=== PATIENT | female | born 1935 | race Caucasian/White ===

== ENCOUNTER 2016-11-12 05:38 | Inpatient (IN) | payer OTHER ==
[2016-10-28 13:05] LABS: HEMATOCRIT 41.4 % (37.0-47.0); HEMOGLOBIN 14.1 gm/dL (12.0-15.0); MCH 30.3 pg (26.0-34.0); RBC 4.65 mil/uL (4.20-5.00); RDW 13.9 % (10.5-14.5); WBC 10.6 thou/uL (4.0-11.0)
[2016-10-28 13:19] LABS: ALBUMIN 4.1 g/dL (3.4-5.0); CALCIUM 9.7 mg/dL (8.5-10.1); POTASSIUM 4.1 mmol/L (3.5-5.1)
[2016-10-28 13:20] LABS: PROTIME 10.7 Seconds (9.3-11.4)
[2016-10-28 13:24] LABS: URINE BILIRUBIN NEGATIVE (Negative); URINE BLOOD NEGATIVE (Negative); URINE COLOR YELLOW; URINE GLUCOSE-RANDOM* NEGATIVE (Negative); URINE KETONES NEGATIVE (Negative); URINE LEUKOCYTES-REFLEX NEGATIVE (Negative); URINE PROTEIN (DIPSTICK) NEGATIVE (Negative); URINE SPECIFIC GRAVITY <= 1.005 (1.003-1.035); URINE UROBILINOGEN 0.2 E.U./dl (0.2-1.0)
[~2016-11-12] VITALS: Ht 160 cm; Wt 78.5 kg
--- NOTE | ~2016-11-12 | EKG ---
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
--- NOTE | ~2016-11-12 | HC ---
[facility] [place] [address] [place] [address] CONSULTATION Name: GISELA PUENTE Room #: 545-P ADM IN M.R.#: [id number] Admission: 11/12/16 Attend Phys: Kirk Bynum MD Discharge: Date of : 37 Report #: [id number] THIS REPORT FOR: //name// CC: Jose Bynum DATE OF SERVICE: 11/12/2016 REASON FOR CONSULTATION: Medical management. HISTORY OF PRESENT ILLNESS: The patient is a 80-year-old white female who presents today for left hip replacement surgery by Dr. Kirk Bynum. Surgery and postop were unremarkable. She is followed in my office for hypertension, hypercholesterolemia, osteopenia, degenerative joint disease and occasional GERD. She is doing well immediate postoperatively. Pain is well controlled. She has no specific new concerns. PAST MEDICAL HISTORY: She is 5, para 5 with 5 vaginal deliveries. Menopause at age 58. She has a history of hormone replacement therapy. She has hypertension, osteopenia, degenerative joint disease, hypercholesterolemia and GERD. PAST SURGICAL HISTORY: She has had tonsillectomy. She has had lumbar back surgery. She has had benign breast biopsies, a left elbow cubital tunnel release and now a left hip replacement. SOCIAL HISTORY: She is retired. She is . She does not smoke. She drinks alcohol socially. She uses no illegal drugs. She gets frequent exercise with walking and golfing. FAMILY HISTORY: Mother of breast cancer. Father of coronary artery disease. Brother of laryngeal cancer. MEDICATIONS ON ADMISSION: Include spironolactone 50 mg daily, Caltrate daily, vitamin E daily, multivitamin daily, Fosamax 35 mg weekly, Cardizem CD 240 mg daily and simvastatin 40 mg daily. MEDICATION ALLERGIES: PENICILLIN. REVIEW OF SYSTEMS: Negative except as per HPI. PHYSICAL EXAMINATION: GENERAL: She is a well-nourished white female resting comfortably in her hospital bed. Pain is adequately controlled. VITAL SIGNS: She is afebrile, blood pressure 149/84, pulse 64, O2 saturation 95% on room air and respirations 12. [facility] [address] [place] [address] CONSULTATION Name: GISELA PUENTE Room #: 545-P [facility] IN .R.#: [id number] Admission: 11/12/16 Attend Phys: Kirk Bynum MD Discharge: Date of : 37 Report #: [id number] HEENT: Grossly unremarkable. NECK: Supple. CHEST: Clear to auscultation. CARDIOVASCULAR: Heart is regular without murmur or gallop. ABDOMEN: Benign. SKIN: Shows normal turgor. PREOPERATIVE LABORATORY DATA: Showed normal basic metabolic profile, normal coagulation times, unremarkable CBC and normal urinalysis. ASSESSMENT: 1. Status post left total hip ____. 2. Hypertension. 3. Hypercholesterolemia. 4. Osteopenia. PLAN: Routine postop care per orthopedics including Xarelto. We will continue her on her home medications, and we will follow her progress with you closely. <ELECTRONICALLY SIGNED> By: Jose Michaels MD 11/13/16 0656 1823 1920 Jose Michaels MD /nt
--- NOTE | ~2016-11-12 | H ---
[facility] [place] [address] HISTORY AND PHYSICAL Name: CINDIGISELA Janet Room #: 545-P DIS IN M.R.#: [id number] Admission: 11/12/16 Attend Phys: Kirk Bynum MD Discharge: 11/15/16 Date of : 37 Report #: [id number] THIS REPORT FOR: //name// For History and Physical, please see office documentation/handwritten note in the patient's medical record. <ELECTRONICALLY SIGNED> By: Kirk Bynum MD 11/19/16 1131 0000 1123 Kirk Bynum MD /
--- NOTE | ~2016-11-12 | O ---
[facility] [place] [address] [address] [place] [address] OPERATIVE REPORT Name: GISELA PUENTE Room #: 545-P ADM IN M.R.#: [id number] Admission: 11/12/16 Attend Phys: Kirk Bynum MD Discharge: Date of : 37 Report #: [id number] THIS REPORT FOR: //name// CC: Jose Bynum DATE OF SERVICE: 11/12/2016 PREOPERATIVE DIAGNOSIS: Left hip degenerative joint disease, severe. POSTOPERATIVE DIAGNOSIS: Left hip degenerative joint disease, severe. PROCEDURE: Left total hip arthroplasty. SURGEON: Kirk Bynum MD VOCATIONAL COORDINATOR: Enzo Hinkle, nurse practitioner. INDICATIONS FOR VOCATIONAL COORDINATOR: During the course of operation, extensive manipulation, retraction and limb positioning was required. This was afforded to me by my executive staff assistant. ANESTHETIC: General. INDICATIONS: See [facility] H and P. IMPLANTS UTILIZED: Used a Salvador hip system, used a secure Secur-Fit Max hip stem, 132-degree neck angle, we used a +0, 32 outer diameter femoral head with a Tritanium hemispherical solid back shell size 50 outer diameter and a Trident X3 10 degree polyethylene insert. DESCRIPTION OF PROCEDURE: After adequate general anesthesia had been obtained, the patient was placed in a lateral decubitus position with a hip positioner. The left hip and lower extremity were prepped and draped in the usual meticulous sterile fashion. Posterolateral incision was made to the hip. SubQ divided sharply. Hemostasis obtained with electrocautery. The IT band and gluteal fascia was divided and this layer was retracted with a Charnley retractor. Hip was internally rotated and external rotators were detached at their insertion, tagged and retracted posteriorly. Capsular incision was made and likewise was tagged and retracted posteriorly. Hip was dislocated. Soft tissue removed from the base of the femoral neck. Starter awl placed at the base of the neck and advanced to the canal. Canal was sequentially reamed to a size 9. Neck osteotomy was performed. Attention directed to the acetabulum and circumferentially exposed. Labrum was [address] [address] OPERATIVE REPORT Name: GISELA PUENTE Room #: 545-P ADM IN M.R.#: [id number] Admission: 11/12/16 Attend Phys: Kirk Bynum MD Discharge: Date of : 37 Report #: [id number] excised. Acetabulum was sequentially reamed to a size 48 with a good press fit with a 48 trial, so we reamed to a 49, irrigated copiously and impacted the shell into position. Cap screw was placed and liner placed after copious irrigation. Attention was redirected to the femur. Femur was sequentially broached to a size 9 and excellent torsional stability was obtained. We trialed reduced the hip and leg lengths were reapproximated with a +0 neck length and excellent stability parameters noted. At this time, the trial components were removed. The hip was irrigated copiously. Permanent implant impacted in place and the head impacted in place. We then repaired the capsule and external rotators to the trochanter. This was done by passing the sutures through the bone and tying them over a bone bridge. Drains were placed deep and superficial. The IT band and gluteal fascia was closed with combination of interrupted [id number] #1 Vicryl as well as running #1 Tevdek. SubQ closed with 2-0 Monocryl, skin closed with fer. Sterile compressive dressing was applied. <ELECTRONICALLY SIGNED> By: Kirk Bynum MD 11/15/16 0652 1217 1302 Kirk Bynum MD /nt
[~2016-11-12 05:38] MED LIST: CARDIZEM CD240 MG PO; DOXYCYCLINE 10100 MG PO; SIMVASTATIN40 MG PO; SPIRONOLACTONE50 MG PO
[2016-11-12 09:00] VITALS: BP 152/77
[2016-11-12 13:55] VITALS: BP 141/76
[2016-11-12 14:30] VITALS: BP 116/54
[2016-11-12 15:00] VITALS: BP 149/84
[2016-11-12 16:00] VITALS: BP 130/77
[2016-11-12 20:00] VITALS: BP 134/80
[2016-11-13] VITALS: BP 137/68
[2016-11-13 04:00] VITALS: BP 130/68
[2016-11-13 06:45] LABS: HEMATOCRIT 35.5 % (37.0-47.0); MCH 30.1 pg (26.0-34.0); MCHC 33.9 g/dL (28.0-37.0); MCV 88.8 fL (80.0-100.0); RDW 14.4 % (10.5-14.5); WBC 13.8 thou/uL (4.0-11.0)
[2016-11-13 08:11] VITALS: BP 135/82
[2016-11-13 15:37] VITALS: BP 138/78
[2016-11-13 20:00] VITALS: BP 143/65
[2016-11-14 04:17] VITALS: BP 127/66
[2016-11-14 06:34] LABS: HEMATOCRIT 33.8 % (37.0-47.0); HEMOGLOBIN 11.4 gm/dL (12.0-15.0); MCH 30.4 pg (26.0-34.0); MCHC 33.8 g/dL (28.0-37.0); RBC 3.76 mil/uL (4.20-5.00); WBC 11.1 thou/uL (4.0-11.0)
[2016-11-14] MEDS ORDERED: XARELTO10 MG PO (07:12)
[2016-11-14] MEDS ORDERED: HYDROCODONE-APA1 TA1 PO (07:12)
[2016-11-14 20:00] VITALS: BP 132/75
[2016-11-15 03:34] LABS: HEMATOCRIT 31.6 % (37.0-47.0); HEMOGLOBIN 10.9 gm/dL (12.0-15.0); MCH 30.8 pg (26.0-34.0); MCHC 34.5 g/dL (28.0-37.0); MCV 89.4 fL (80.0-100.0); RBC 3.54 mil/uL (4.20-5.00); RDW 13.9 % (10.5-14.5); WBC 9.5 thou/uL (4.0-11.0)
[2016-11-15 04:00] VITALS: BP 152/70
[2016-11-15] MEDS ORDERED: ZOFRAN ODT4 MG DISSOLVE (06:45)
[2016-11-15] MEDS ORDERED: COLACE 100 MG100 MG PO (07:47)
[2016-11-15] MEDS ORDERED: SENNA8.6 MG PO (07:48)
[2016-11-15] MEDS ORDERED: IRON325 PO (07:50)
[2016-11-15 08:54] VITALS: BP 152/70
[2016-11-15 09:42] VITALS: BP 167/61
== END 2016-11-15 14:05 | disposition home health service (06) | DRG 470 ==
LOC: TBA 05:38 → 5S 05:38 → PRE 08:13 → 5S 13:23 → PRE 14:21 → 5S 11-15 14:05
PROVIDERS: Orthopaedic Surgery
PROC: 0SRB04A Replacement of Left Hip Joint with Ceramic on Polyethylene Synthetic Substitute, Uncemented, Open Approach (ICD-10-PCS; principal; 2016-11-12)
DX: M16.12 Unilateral primary osteoarthritis, left hip (principal); D62 Acute posthemorrhagic anemia; I10 Essential (primary) hypertension; E78.00 Pure hypercholesterolemia, unspecified; K21.9 Gastro-esophageal reflux disease without esophagitis; R11.0 Nausea; Z90.49 Acquired absence of other specified parts of digestive tract; Z82.49 Family history of ischemic heart disease and other diseases of the circulatory system; Z80.3 Family history of malignant neoplasm of breast; Z80.8 Family history of malignant neoplasm of other organs or systems; Z88.0 Allergy status to penicillin; M85.80 Other specified disorders of bone density and structure, unspecified site
CPT/HCPCS: 10785; 50010; 50101; 50382; 50414; 50455; 50855; 50939; 51412; 51771; 53000; 55388; 56521; 56525; 56527; 56530; 57095; 62110; 62900; 70005

== ENCOUNTER → 2020-01-18 | Outpatient (CLI) | payer OTHER ==
[~2020-01-18] MED LIST changes: +COLACE 100 MG100 MG PO; +HYDROCODONE-APA1 TA1 PO; +IRON325 PO; +SENNA8.6 MG PO; +XARELTO10 MG PO; +ZOFRAN ODT4 MG DISSOLVE
== END ==
LOC: SJCVC 14:22
PROVIDERS: ATTEND Internal Medicine
DX: R07.9 Chest pain, unspecified (principal); I10 Essential (primary) hypertension; R00.2 Palpitations; E78.5 Hyperlipidemia, unspecified; K21.9 Gastro-esophageal reflux disease without esophagitis; M85.80 Other specified disorders of bone density and structure, unspecified site; E78.00 Pure hypercholesterolemia, unspecified; Z87.891 Personal history of nicotine dependence

== ENCOUNTER → 2021-03-23 | Outpatient (CLI) | payer OTHER | LOC: SJCVCIMAG 09:14 | PROVIDERS: ATTEND Internal Medicine | DX: M79.604 Pain in right leg (principal); M79.605 Pain in left leg ==

== ENCOUNTER → 2021-07-03 | Outpatient (CLI) | payer OTHER ==
[~2021-07-03] MED LIST changes: +ALEVE PM CAPLE1 EACH PO; +CELEBREX 200 M200 MG PO; +CENTRUM COMPLE1 EACH PO; +CLEOCIN HCL150 MG PO; +COZAAR 25 MG TA25 M2 PO; +OXYBUTYNIN 5 MG5 M2 PO; +PROLIA60 MG/1 ML SUBQ; +TYLENOL ARTHRI650 MG PO
[2021-07-03 14:53] LABS: MCH 29.8 pg (26.0-34.0); MCHC 32.4 g/dL (28.0-37.0); MCV 92.1 fL (80.0-100.0); RBC 4.02 mil/uL (4.20-5.00); RDW 14.3 % (10.5-14.5); WBC 6.9 thou/uL (4.0-11.0)
[2021-07-03 15:00] LABS: ALBUMIN 3.6 g/dL (3.4-5.0); CALCIUM 9.4 mg/dL (8.5-10.1); CREATININE 0.8 mg/dL (0.6-1.0); POTASSIUM 4.9 mmol/L (3.5-5.1)
[2021-07-03 15:18] LABS: INR 1.02; PROTIME 11.1 Seconds (10.5-12.1)
[2021-07-03 15:35] LABS: URINE BILIRUBIN NEGATIVE (Negative); URINE BLOOD NEGATIVE (Negative); URINE CLARITY CLEAR; URINE COLOR YELLOW; URINE GLUCOSE-RANDOM* NEGATIVE (Negative); URINE KETONES NEGATIVE (Negative); URINE LEUKOCYTES-REFLEX TRACE (Negative); URINE NITRITE-REFLEX NEGATIVE (Negative); URINE PROTEIN (DIPSTICK) NEGATIVE (Negative); URINE UROBILINOGEN 0.2 E.U./dl (0.2-1.0)
== END ==
LOC: PAC 10:48
PROVIDERS: ATTEND Orthopaedic Surgery
DX: M12.851 Other specific arthropathies, not elsewhere classified, right hip (principal)

== ENCOUNTER 2021-07-10 08:38 | Observation (INO) | payer OTHER ==
[~2021-07-10] VITALS: Ht 160 cm; Wt 71.7 kg
[2021-07-10 09:40] VITALS: BP 155/65
[2021-07-10 17:07] VITALS: BP 152/64
[2021-07-10 19:23] VITALS: BP 127/60
--- NOTE | 2021-07-11 03:10 | NUR ---
PT ARRIVED TO THE UNIT AT AROUND 1800 HRS. PT IS ALERT AND ORIENTED, PLEASANT.S/P RIGHT HIP REPLACEMENT. WBAT. AQUACEL DRSG TO HIP C/D/I, ICEPAK IN PLACE. SCDS, TEDS IN PLACE. GOOD CSM TO RIGHT FOOT. PT BEEN ABLE TO GET UP TO THE BSC TWICE. SHE IS TOO TIRED TO AMBULATE FURTHER-WILL ENCOURAGE IN THE MORNIN. AFEBRILE. DENIES NAUSEA OR VOMITING, TOLERATING DIET. CALL LIGHT WITHIN REACH, FALL PREC IN PLACE.
[2021-07-11 04:18] VITALS: BP 113/51
[2021-07-11 07:52] VITALS: BP 109/49
--- NOTE | 2021-07-11 09:40 | NUR ---
Chart review. DX: hip surgery. Therapy ordered. Cm notified that she feels she will be able to go home today. Cm visited with flower and daughter tony at bedside. Flower is a & o x 3, pleasant and able to make her needs know. Lives at home alone. Son going to spend some evenings with her when she gets home. Independent when feel ok, manage own medication. Has [facility] already. would like home [facility] in past and will use them again. Referral sent to [facility]. Daughter her at bedside and can transport her home today.
--- NOTE | 2021-07-11 10:09 | NUR ---
ASSUMED PT CARE THIS AM. PT IS ALERT & ORIENTED X4. PHYSICAL AND OCCUPATIONAL THERAPY WAS WORKING WITH PT THIS AM. PT IS ON ROOM AIR. PT DAUGHTER AT THE BEDSIDE. NO C/O OF NAUSEA, VOMITING AND PAIN. GIVEN SCHEDULED MEDICATIONS WITHOUT DIFFICULTIES. WILL CONTINUE TO MONITOR PT. FOLLOW POC.
[2021-07-11 10:57] VITALS: BP 109/49
== END 2021-07-11 13:10 | disposition home or self-care (01) ==
LOC: PRE → OR 08:38 → PRE 11:53 → TBA 15:27 → PRE 15:40 → 4S 16:32 → OR 16:33 → EDSTATUS 18:32 → OR 18:54 → 4S 07-11 13:10
PROVIDERS: ADMIT Orthopaedic Surgery; ATTEND Orthopaedic Surgery
DX: M16.11 Unilateral primary osteoarthritis, right hip (principal); Z20.822 Contact with and (suspected) exposure to COVID-19
CPT/HCPCS: 50010; 50101; 50382; 50414; 50855; 51057; 51225; 51226; 52304; 53078; 53367; 56460; 56524; 56527; 56528; 57093; 57095; 57103; 58637; 58847; 58959; 62110; 62900; 70005